=== PATIENT | female | born 1950 ===

== ENCOUNTER 2017-09-14 11:01 | Outpatient (CLI) | payer OTHER ==
[~2017-09-14] VITALS: Ht 154.9 cm; Wt 63.5 kg
[2017-09-14] MEDS ORDERED: CEFUROXIME500 MG PO (12:43)
== END 2017-09-14 11:15 | disposition home or self-care (01) ==
LOC: OFIC 805 11:01
DX: J01.80 Other acute sinusitis (principal); H93.13 Tinnitus, bilateral; G44.89 Other headache syndrome; H61.21 Impacted cerumen, right ear; J34.89 Other specified disorders of nose and nasal sinuses